=== PATIENT | female | born 2000 | race African-American/Black ===

== ENCOUNTER 2020-09-09 18:43 | Emergency (ER) | payer OTHER ==
--- OUTSIDE RECORDS SUMMARY | 2020-09-09 18:47 | XMS REPORT | Continuity of Care Document ---
:2000 Author Organization [facility] t Address [address] [place] [address] Care Team Providers Name Role Phone Haris Thrasher DO Attending Clinician Debbie Linares Attending Clinician Doctor Unassigned, Name Attending Clinician Unavailable Problems This patient has no known problems. Allergies, Adverse Reactions, Alerts This patient has no known allergies or adverse reactions. Medications This patient has no known medications. Procedures This patient has no known procedures. 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
[2020-09-09 19:36] LABS: Urine Blood Negative (Negative); Urine Glucose Negative (Negative); Urine Protein Negative (Negative); Urine Specific Gravity >=1.030 (1.005-1.030); Urine pH 6.5 (5.0-7.0)
[2020-09-09 19:50] LABS: Urine Specific Gravity/Preg >1.030 (1.005-1.030)
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
--- NOTE | 2020-09-09 20:27 | RAD REPORT ---
EXAM DESCRIPTION: Alexsander Thompson (2 Views)09/09/2020 8:09 pm CLINICAL HISTORY: Chest pain COMPARISON: None FINDINGS: The lungs appear clear of acute infiltrate. The heart is normal size IMPRESSION: No acute abnormalities displayed
== END 2020-09-09 20:51 | disposition home or self-care (01) ==
LOC: ER 18:43
DX: S20.219A Contusion of unspecified front wall of thorax, initial encounter (principal); V43.62XA Car passenger injured in collision with other type car in traffic accident, initial encounter
CPT/HCPCS: 71046; 81003; 81025; 99283